=== PATIENT | female | born 1945 | race Caucasian/White ===

== ENCOUNTER 2020-10-21 09:58 | Emergency (ER) | payer BC, OTHER ==
[~2020-10-21] VITALS: Ht 162.6 cm; Wt 65.8 kg
[~2020-10-21 09:58] MED LIST: AMLO2.5T2 PO; ASPI-858 PO; ESTR1TAB PO; LIP10 PO; MES60 PO; SYN50 PO
[2020-10-21 10:17] VITALS: BP_SYST 137
--- NOTE | 2020-10-21 10:22 | NUR ---
Patient to ER bed 5 to gown for evaluation. Side rails up. Report given to PALLAVI FERRO.
--- NOTE | 2020-10-21 10:25 | NUR ---
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 Left calf swollen and red. Pt able to walk on it without complications. V/S stable, no acute distress noted.
--- NOTE | 2020-10-21 10:30 | NUR ---
ER Dr. Mckeon at bedside examining patient.
--- NOTE | 2020-10-21 10:51 | NUR ---
Radiology at bedside for ultrasound.
[2020-10-21] MEDS ORDERED: NAPR-688 PO ×3 (11:13→11:26)
[2020-10-21] MEDS ORDERED: CLIN300C12 PO ×3 (11:13→11:26)
[2020-10-21 11:28] VITALS: BP_SYST 137
--- NOTE | 2020-10-21 11:28 | NUR ---
Patient given written and verbal discharge instructions and verbalizes understanding. ER MD discussed with patient the results and treatment provided. Patient in stable condition. ID arm band removed. Rx of Naproxen and Clindomyacin given. Patient educated on pain management and to follow up with PMD. Pain Scale 0. Opportunity for questions provided and answered. Medication side effect fact sheet provided.
== END 2020-10-21 11:28 | disposition home or self-care (01) ==
LOC: SED 09:58
DX: I80.02 Phlebitis and thrombophlebitis of superficial vessels of left lower extremity (principal); E03.9 Hypothyroidism, unspecified; J45.909 Unspecified asthma, uncomplicated; Z88.0 Allergy status to penicillin; Z88.2 Allergy status to sulfonamides; Z88.8 Allergy status to other drugs, medicaments and biological substances; Z79.82 Long term (current) use of aspirin; Z79.899 Other long term (current) drug therapy
CPT/HCPCS: 93971; 99284